=== PATIENT | male | born 1960 | race Caucasian/White ===

== ENCOUNTER 2018-06-01 08:44 | Day surgery (SDC) | payer OTHER ==
[2018-05-30 15:19] VITALS: BMI 26.6
[2018-06-01 09:07] LABS: URINE APPEARANCE CLEAR; URINE BILIRUBIN NEGATIVE (<2.0 mg/dL); URINE COLOR YELLOW; URINE GLUCOSE (UA) NEGATIVE (NEGATIVE); URINE KETONE NEGATIVE (NEGATIVE); URINE LEUK ESTERASE NEGATIVE (NEGATIVE); URINE NITRITE NEGATIVE (NEGATIVE); URINE PROTEIN NEGATIVE (NEGATIVE); URINE UROBILINOGEN NEGATIVE mg/dL (0.2-1.0)
--- NOTE | 2018-06-01 09:50 | HP ---
[facility] - Chief Complaint Chief Complaint: right knee pain - Past Medical History Allergies/Adverse Reactions: Allergies Allergy/AdvReac Type Severity Reaction Status Date / Time No Known Drug Allergies Allergy Verified 05/30/18 15:04 - Current Medications Current Medications: Home Medications Medication Instructions Recorded Montelukast Na [Singulair -] 10 mg PO HS 05/30/18 Simvastatin 40 mg PO HS 05/30/18 Hydrocodone/Acetaminophen [[place] 1 each PO Q6H PRN #20 tablet MDD 4 06/01/18 5-325 Tablet] Satellite Physical Exam - Physical Examination Vital Signs: Vital Signs Period Temp Pulse Resp BP Sys/Meneses Pulse Ox Last 24 Hr 97.7 F 65 20 135/96 98 General Appearance: Well Nourished, Well Developed, Alert & Oriented x3 ENT: Clear Lung: Normal air movement Heart: Regular rate & rhythm Extremities: Other (right knee- + ttp, decr rom, + mcmurrays, nvi MRI + mt) Neurological: Intact, Alert, Oriented Satellite Impression/Plan - Impression/Plan Impression: right knee internal derangement Operative Procedure: right knee arthroscopy Date to be Performed: 06/01/18
[2018-06-01] MEDS ORDERED: BUPIVACAINE HCL/PF 0.5% (5MG/ML) 10 ML VIAL ONE (10:48)
[2018-06-01] MEDS ORDERED: MIDAZOLAM HCL 2 MG/2 ML SINGLE DOSE VIAL ONE (10:50)
[2018-06-01] MEDS ORDERED: DEXAMETHASONE SOD PHOSPHATE 4 MG/1 ML VIAL ONE (11:16)
[2018-06-01] MEDS ORDERED: ceFAZolin SODIUM 1 GM VIAL ONE (11:18)
[2018-06-01] MEDS ORDERED: LIDOCAINE HCL/PF 2% SDV 5ML VIAL ONE (11:18)
[2018-06-01] MEDS ORDERED: ceFAZolin SODIUM 1 GM VIAL IVPB ONE (11:20)
[2018-06-01] MEDS ORDERED: PROPOFOL 20 ML ONE (11:22)
[2018-06-01] MEDS ORDERED: ePHEDrine SULFATE 50 MG/1 ML AMPULE ONE (11:49)
[2018-06-01] MEDS ORDERED: BUPIVACAINE HCL/PF 0.5% (5MG/ML) 10 ML VIAL IJ ONE (11:50)
--- NOTE | 2018-06-01 12:08 | OP ---
Operative Note - Note: Operative Date: 06/01/18 Pre-Operative Diagnosis: right knee pain, meniscus tears, OA Operation: right knee arthroscopy, partial medial and lateral meniscectomy, debridement chondroplasty Post-Operative Diagnosis: Same as Pre-op Surgeon: Fredy Rod Anesthesiologist/RFID SPECIALIST: Pool Abreu Anesthesia: General, Local Specimens Removed: shavings Estimated Blood Loss (mls): 0 Drains, Volume Out (mls): 0 Blood Volume Replaced (mls): 0 Fluid Volume Replaced (mls): 800 Operative Report Dictated: Yes
[2018-06-01] MEDS ORDERED: oxyCODONE HCL 5 MG TABLET PO PRN (12:17)
[2018-06-01] MEDS ORDERED: ONDANSETRON 4 MG/2 ML VIAL IVPUSH PRN (12:17)
[2018-06-01] MEDS ORDERED: LACTATED RINGERS SOLUTION 1,000 ML IV SCH (12:30)
[2018-06-01] MEDS ORDERED: KETOROLAC TROMETHAMINE 30 MG/1 ML VIAL IVPUSH ONE (12:36)
[2018-06-01 14:20] VITALS: BP 133/79; PULSE 74; TEMP 98.9
--- NOTE | 2018-06-01 16:32 | OP ---
DATE OF OPERATION: 06/01/2018 PREOPERATIVE DIAGNOSES: Right knee pain, medial and lateral meniscus tear, and osteoarthritis. POSTOPERATIVE DIAGNOSES: Right knee pain, medial and lateral meniscus tear, and osteoarthritis. PROCEDURES: Right knee arthroplasty, partial medial and lateral meniscectomy, and debridement chondroplasty. SURGEON: Fredy Rod MD PAINTER: None. ANESTHESIOLOGIST: ANESTHESIA: LMA, local injection of 20 mL 0.5% Marcaine. DRAINS: None. COMPLICATIONS: None. SPECIMENS: Arthroscopic shavings. FLUID REPLACEMENT: 800 mL Plasmalyte. BLOOD LOSS: None. BLOOD GIVEN: None. INDICATIONS FOR PROCEDURE: The patient is a 57-year-old male with a preoperative diagnosis of right knee pain, medial and lateral meniscus tear, and osteoarthritis. After understanding the potential risks, complications, alternatives, benefits of surgery versus nonsurgical treatment, the patient elected to undergo this procedure. The patient understands that because of the osteoarthritis, not all of his pain or symptoms will go away. He may very well need additional intervention in the future including the possibility of injections and/or surgery including a knee replacement. PROCEDURE: The patient was brought to the operating room, peripheral IV placed, IV sedation given. IV Ancef 1 g was given. LMA anesthesia was induced. Ample Webril was placed around the right thigh. The right lower extremity was prepped and draped in sterile fashion, elevated, exsanguinated with an Esmarch bandage, and tourniquet inflated to 250 mmHg. A Styrofoam ring was also used in the C-clamp leg rincon. A superior medial outflow portal was established. A lateral portal was established and the arthroscope was introduced into the joint and a diagnostic arthroscopy was performed. Under direct visualization using a spinal needle, a medial portal was established. A probe was introduced in the medial compartment. Patient was seen to have a good portion of his medial meniscus already gone. There was some fraying in the posterior aspect of the radial tear of the posterior horn in the medial meniscus. This was debrided with the curved shaver. A frayed body of the medial meniscus was also debrided with the shaver. There were areas of grade 2 chondromalacial of the medial femoral condyle and grade 3 of the medial tibial plateau. This chondromalacia was gently debrided. In the intracondylar notch, the ACL was seen to look okay, but there were several torn fibers. It was a small portion of the ACL, certainly less than 10%. These were debrided with the shaver. Next, our attention turned to the lateral compartment where the patient was seen to have a significant tear of the anterior horn and body of the lateral meniscus. This was debrided with the shaver. Once this was out, I visualized an arthritic lateral compartment with grade 4 osteoarthritis of the lateral tibial plateau and widespread grade 3 and small areas of grade 4 of the lateral femoral condyle. A gentle debridement chondroplasty was performed here, as well. The posterior horn and body of the lateral meniscus were also well visualized, seen to be frayed, and these were debrided, as well. Next, our attention turned to the patellofemoral joint. The patient had a lot of synovitis which was removed. 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 A gentle debridement chondroplasty was performed here, as well. The patient had large spurs on the undersurface of the patella. The patient was copiously irrigated and washed out. All instrumentation, debris, and excess saline removed. The arthroscopy portals were closed with 3-0 nylon sutures. The area was then washed and dried, covered with Xeroform, 4 x 4 gauze, Webril, and an REMEDIOS bandage. The total tourniquet was about 20 minutes. There were no complications during the case. The patient tolerated the procedure quite well and was brought to the ambulatory recovery room in stable condition. Amy [id number]
--- NOTE | 2018-06-03 15:10 | PATH ---
Surgical Pathology Report Patient Name: THUY BLUM [facility]. Rec. #: [id number] /Age/Gender: 1960 (Age: 57) / M Account: [id number] Location: [facility] SURGICAL Taken: 06/01/2018 Received: 06/01/2018 Reported: 06/03/2018 Physicians: Fredy Rod M.D. Specimen(s) Received RIGHT KNEE SHAVINGS Clinical History Right knee tear Final Diagnosis KNEE SHAVINGS, RIGHT, ARTHROSCOPY: FRAGMENTS OF CARTILAGE, DENSE FIBROCONNECTIVE TISSUE, ADIPOSE TISSUE, AND REACTIVE SYNOVIUM. Electronically Signed Casie Lema M.D. Gross Description Received in formalin, labeled "right knee shavings," is a 5.5 x 5.0 x 0.8 cm. aggregate of feliciano-yellow soft tissue fragments. A disability representative portion is submitted in one cassette. 06/02/2018 saudi06/02/2018
== END 2018-06-01 14:15 | disposition home or self-care (01) ==
LOC: JASU-SURG 08:44
PROVIDERS: ATTEND Orthopaedic Surgery
PROC: 0SBC4ZZ Excision of Right Knee Joint, Percutaneous Endoscopic Approach (ICD-10-PCS; 2018-06-01)
PROC: 0SBC4ZZ Excision of Right Knee Joint, Percutaneous Endoscopic Approach (ICD-10-PCS; principal; 2018-06-01 10:00)
DX: S83.281A Other tear of lateral meniscus, current injury, right knee, initial encounter (principal); S83.241A Other tear of medial meniscus, current injury, right knee, initial encounter; X58.XXXA Exposure to other specified factors, initial encounter; Y93.9 Activity, unspecified; Y92.89 Other specified places as the place of occurrence of the external cause; Y99.9 Unspecified external cause status
CPT/HCPCS: 81003; 88304-TC; 94760